=== PATIENT | female | born 1995 | race Native Hawaiian/Other Pacific Islander ===

== ENCOUNTER 2016-10-21 17:06 | Emergency (ER) | payer BC ==
[~2016-10-21] VITALS: Ht 170.2 cm; Wt 83.5 kg
[2016-10-21 17:41] VITALS: BP 141/93; TEMP 98.8
== END 2016-10-21 18:11 | disposition home or self-care (01) ==
LOC: ED 17:06
DX: G44.89 Other headache syndrome (principal); R11.2 Nausea with vomiting, unspecified
CPT/HCPCS: 96372; 99283; J1885; J2765

== ENCOUNTER 2017-08-03 14:40 | Outpatient (CLI) | payer BC ==
[2017-08-03 14:58] LABS: PLATELET COUNT 259 K/uL (152-353)
[2017-08-03 15:31] LABS: POTASSIUM 3.8 mmol/L (3.6-5.2)
== END 2017-08-03 19:38 | disposition home or self-care (01) ==
LOC: LABW 14:40
PROVIDERS: Nurse Practitioner Family
DX: R60.0 Localized edema (principal); R53.83 Other fatigue; Z77.011 Contact with and (suspected) exposure to lead
CPT/HCPCS: 36415; 80053; 83655; 84436; 84443; 85027

== ENCOUNTER 2022-09-05 17:09 | Emergency (ER) | payer OTHER ==
[~2022-09-05] VITALS: Ht 170.2 cm; Wt 93.9 kg
[2022-09-05 17:15] VITALS: BP 135/82; TEMP 98.5
== END 2022-09-05 19:28 | disposition home or self-care (01) ==
LOC: ED 17:09
DX: S20.219A Contusion of unspecified front wall of thorax, initial encounter (principal); X58.XXXA Exposure to other specified factors, initial encounter
CPT/HCPCS: 96372; 99283; J1885